=== PATIENT | female | born 1980 | race African-American/Black ===

== ENCOUNTER 2019-08-14 09:27 | Emergency (ER) | payer OTHER | END 2019-08-14 15:24 | disposition home or self-care (01) | LOC: EC 09:27 | DX: R22.0 Localized swelling, mass and lump, head (principal); R21 Rash and other nonspecific skin eruption | CPT/HCPCS: 99283 ==

== ENCOUNTER 2022-01-12 19:11 | Emergency (ER) | payer OTHER ==
[2022-01-12 19:30] VITALS: TEMP 98.4
[2022-01-12 23:18] LABS: Appearance,Urine Clear (Clear); Bacteria,Urine Rare /hpf; Bilirubin,Urine Negative (Negative); Blood,Urine Negative (Negative); Color,Urine Yellow; Glucose,Urine (UA) Negative (Negative); Ketones,Urine Negative (Negative); Leukocyte Esterase,Urine Moderate (Negative); Mucus,Urine Few /hpf; Nitrite,Urine Negative (Negative); PH, Urine 5.5 (5.0-8.0); Protein,Urine Trace (Negative); RBC,Urine 1 /hpf (0-5); Specific Gravity,Urine 1.025 (1.001-1.035); Squamous Epithelial Cell,Urine 1 /hpf (0-4); WBC,Urine 5 /hpf (0-5)
[2022-01-12] MEDS ORDERED: CEPHALEXIN 500 MG CAP PO STA (23:43)
[2022-01-12 23:50] VITALS: BP 137/67; PULSE 71; RESP 15
--- NOTE | 2022-01-12 23:57 | ED ---
Female Urogenital HPI - General Chief complaint: Urogenital Stated complaint: cough, urogenital Time Seen by Provider: 01/12/22 22:26 Source: patient Mode of arrival: ambulatory Limitations: no limitations - History of Present Illness Initial comments: 's patient is a 41-year-old woman who presents to have evaluation for 2 complaints. She states that the symptoms bothering her more currently are urinary frequency and dysuria. She states that she has urinary tract infection as the symptoms are similar. The patient notes that she also has had some upper respiratory symptoms including congestion and cough which now seems to be settling in her chest and she is having some thick sputum with cough. No real dyspnea. No chest pain. No leg pain or swelling. MD Complaint: dysuria Onset/Timin -: days(s) Location: suprapubic Severity: moderate Quality: burning Consistency: intermittent Worsens with: urination Last Menstrual Period: 01/09/22 - Related Data Previous Rx's Medication Instructions Recorded Cephalexin [Keflex] 500 mg PO Q6HR #28 cap 01/12/22 Albuterol Sulfate [Albuterol 2 puff PO Q4H PRN #8.5 gm 01/19/22 Sulfate Hfa] Ciprofloxacin HCl [Cipro] 500 mg PO Q12HR #14 tablet 01/19/22 Phenazopyridine [Pyridium] 200 mg PO TID #9 tablet 01/19/22 Allergies Allergy/AdvReac Type Severity Reaction Status Date / Time codeine AdvReac Rash/Hives Verified 01/12/22 19:30 lamotrigine [From Lamictal] AdvReac Rash/Hives Verified 01/12/22 19:30 Review of Systems ROS Statement: Those systems with pertinent positive or pertinent negative responses have been documented in the HPI. ROS Other: All systems not noted in ROS Statement are negative. Constitutional: Denies: fever, chills, weakness Respiratory: Reports: cough, wheezes. Denies: dyspnea Cardiovascular: Denies: chest pain, palpitations, edema Gastrointestinal: Denies: abdominal pain, nausea, vomiting Genitourinary: Reports: urgency, dysuria, frequency. Denies: discharge Musculoskeletal: Denies: back pain Skin: Denies: rash Neurological: Denies: headache, weakness Past Medical History Past Medical History: Asthma History of Any Multi-Drug Resistant Organisms: None Reported Past Surgical History: Section Past Psychological History: Anxiety Smoking Status: Never smoker Past Alcohol Use History: None Reported Past Drug Use History: None Reported General Exam Limitations: no limitations General appearance: alert, in no apparent distress Head exam: Present: atraumatic, normocephalic Eye exam: Present: normal appearance. Absent: scleral icterus, conjunctival injection Respiratory exam: Present: wheezes. Absent: respiratory distress, rales, rh onchi, stridor Cardiovascular Exam: Present: regular rate, normal rhythm, normal heart sounds. Absent: systolic murmur, diastolic murmur, rubs, gallop GI/Abdominal exam: Present: soft. Absent: distended, tenderness, guarding, rebound, rigid, mass Extremities exam: Present: normal inspection, normal capillary refill. Absent: pedal edema, calf tenderness Back exam: Absent: CVA tenderness (R), CVA tenderness (L) Neurological exam: Present: alert Skin exam: Present: warm, dry, intact, normal color. Absent: rash Course Vital Signs 01/12/22 01/12/22 19:24 23:48 Temperature 98.4 F Pulse Rate 93 71 Respiratory 20 15 Rate Blood Pressure 129/68 137/67 O2 Sat by Pulse 99 100 Oximetry Medical Decision Making - Lab Data Lab Results 01/12/22 01/12/22 01/12/22 Range/Units 22:38 22:38 22:47 Urine Color Yellow Urine Appearance Clear (Clear) Urine pH 5.5 (5.0-8.0) Ur Specific [place] 1.025 (1.001-1.035) Urine Protein Trace H (Negative) Urine Glucose (UA) Negative (Negative) Urine Ketones Negative (Negative) Urine Blood Negative (Negative) Urine Nitrite Negative (Negative) Urine Bilirubin Negative (Negative) Urine Urobilinogen 2.0 (<2.0) mg/dL Ur Leukocyte Esterase Moderate H (Negative) Urine RBC 1 (0-5) /hpf Urine WBC 5 (0-5) /hpf Ur Squamous Epith Cells 1 (0-4) /hpf Urine Bacteria Rare H (None) /hpf Urine Mucus Few H (None) /hpf Urine HCG, Qual (Not Detectd) Coronavirus (PCR) Not Detected (Not Detectd) Influenza Type A RNA Not Detected (Not Detectd) Influenza Type B (PCR) Not Detected (Not Detectd) 01/12/22 Range/Units 22:47 Urine Color Urine Appearance (Clear) Urine pH (5.0-8.0) Ur Specific [place] (1.001-1.035) Urine Protein (Negative) Urine Glucose (UA) (Negative) Urine Ketones (Negative) Urine Blood (Negative) Urine Nitrite (Negative) Urine Bilirubin (Negative) Urine Urobilinogen (<2.0) mg/dL Ur Leukocyte Esterase (Negative) Urine RBC (0-5) /hpf Urine WBC (0-5) /hpf Ur Squamous Epith Cells (0-4) /hpf Urine Bacteria (None) /hpf Urine Mucus (None) /hpf Urine HCG, Qual Not Detected (Not Detectd) Coronavirus (PCR) (Not Detectd) Influenza Type A RNA (Not Detectd) Influenza Type B (PCR) (Not Detectd) Disposition Clinical Impression: Urinary tract infection, Bronchitis Disposition: HOME SELF-CARE Condition: Stable Instructions (If sedation given, give patient instructions): Urinary Tract Infection in Women (ED), Acute Bronchitis (ED) Prescriptions: Cephalexin [Keflex] 500 mg PO Q6HR #28 cap Is patient prescribed a controlled substance at d/c from ED?: No Referrals: None,Stated [Primary Care Provider] - 1-2 days
== END 2022-01-13 | disposition home or self-care (01) ==
LOC: EC 19:11
DX: N39.0 Urinary tract infection, site not specified (principal); J45.909 Unspecified asthma, uncomplicated; F41.9 Anxiety disorder, unspecified; Z88.5 Allergy status to narcotic agent; Z88.8 Allergy status to other drugs, medicaments and biological substances; Z20.822 Contact with and (suspected) exposure to COVID-19
CPT/HCPCS: 81001; 81025; 87502; 87635; 99283

== ENCOUNTER 2022-01-19 18:06 | Emergency (ER) | payer MEDICARE, OTHER ==
[2022-01-19 18:54] VITALS: BP 126/89; PULSE 112; RESP 20; TEMP 98.5
--- NOTE | 2022-01-19 21:21 | ED ---
Female Urogenital HPI - General Chief complaint: Urogenital Stated complaint: possible UTI Time Seen by Provider: 01/19/22 21:06 Source: patient Mode of arrival: ambulatory Limitations: no limitations - Related Data Previous Rx's Medication Instructions Recorded Cephalexin [Keflex] 500 mg PO Q6HR #28 cap 01/12/22 Albuterol Sulfate [Albuterol 2 puff PO Q4H PRN #8.5 gm 01/19/22 Sulfate Hfa] Ciprofloxacin HCl [Cipro] 500 mg PO Q12HR #14 tablet 01/19/22 Phenazopyridine [Pyridium] 200 mg PO TID #9 tablet 01/19/22 Allergies Allergy/AdvReac Type Severity Reaction Status Date / Time codeine AdvReac Rash/Hives Verified 01/12/22 19:30 lamotrigine [From Lamictal] AdvReac Rash/Hives Verified 01/12/22 19:30 Review of Systems ROS Statement: Those systems with pertinent positive or pertinent negative responses have been documented in the HPI. ROS Other: All systems not noted in ROS Statement are negative. Past Medical History Past Medical History: Asthma History of Any Multi-Drug Resistant Organisms: None Reported Past Surgical History: Section Past Psychological History: Anxiety Smoking Status: Never smoker Past Alcohol Use History: None Reported Past Drug Use History: None Reported General Exam Limitations: no limitations Course Vital Signs 01/19/22 18:52 Temperature 98.5 F Pulse Rate 112 H Respiratory 20 Rate Blood Pressure 126/89 O2 Sat by Pulse 99 Oximetry Disposition Clinical Impression: UTI (urinary tract infection), Cough, Asthma Disposition: HOME SELF-CARE Condition: Good Instructions (If sedation given, give patient instructions): Urinary Tract Infection in Women (ED), Asthma (ED) Prescriptions: Albuterol Sulfate [Albuterol Sulfate Hfa] 2 puff PO Q4H PRN #8.5 gm PRN Reason: Cough Ciprofloxacin HCl [Cipro] 500 mg PO Q12HR #14 tablet Phenazopyridine [Pyridium] 200 mg PO TID #9 tablet Is patient prescribed a controlled substance at d/c from ED?: No Referrals: None,Stated [Primary Care Provider] - 1-2 days Time of Disposition: 21:20
--- NOTE | 2022-01-19 21:24 | ED ---
Female Urogenital HPI - General Chief complaint: Urogenital Stated complaint: possible UTI Time Seen by Provider: 01/19/22 21:06 Source: patient Mode of arrival: ambulatory Limitations: no limitations - History of Present Illness Initial comments: This 41-year-old female presents with complaint of some urinary urgency, frequency, and dysuria. She states that this is been going on for over a week. She has occasional suprapubic pain. There is no flank pain or fever. She was seen in the emergency department about a week ago and was prescribed Keflex and states that this does not help her symptomatology. She also is complaining of a cough and occasional shortness of breath over the past couple of weeks but this has significantly improved. She denies any recent production. She does have a history of asthma and is requesting an inhaler. She denies any other complaints or modifying factors. She denies any possibility of . - Related Data Previous Rx's Medication Instructions Recorded Cephalexin [Keflex] 500 mg PO Q6HR #28 cap 01/12/22 Albuterol Sulfate [Albuterol 2 puff PO Q4H PRN #8.5 gm 01/19/22 Sulfate Hfa] Ciprofloxacin HCl [Cipro] 500 mg PO Q12HR #14 tablet 01/19/22 Phenazopyridine [Pyridium] 200 mg PO TID #9 tablet 01/19/22 Allergies Allergy/AdvReac Type Severity Reaction Status Date / Time codeine AdvReac Rash/Hives Verified 01/12/22 19:30 lamotrigine [From Lamictal] AdvReac Rash/Hives Verified 01/12/22 19:30 Review of Systems ROS Statement: Those systems with pertinent positive or pertinent negative responses have been documented in the HPI. ROS Other: All systems not noted in ROS Statement are negative. Past Medical History Past Medical History: Asthma History of Any Multi-Drug Resistant Organisms: None Reported Past Surgical History: Section Past Psychological History: Anxiety Smoking Status: Never smoker Past Alcohol Use History: None Reported Past Drug Use History: None Reported General Exam - General Exam Comments Initial Comments: GENERAL: The patient is well nourished and well hydrated. VITAL SIGNS: Heart rate, blood pressure, respiratory rate reviewed as recorded in nurse's notes. EYES: Pupils are round and reactive. Extraocular movements are intact. No conjunctival / lid redness or swelling. ENT: No external evidence of injury, swelling, or ecchymosis. Airway is patent. Throat is clear. NECK: Nontender. No swelling or evidence of injury. No subcutaneous emphysema. Trachea is midline. No thyroid mass. HEART: Regular rate and rhythm. Good peripheral pulses. LUNGS/CHEST: Breath sounds clear and equal bilaterally. No rales, rhonchi, or wheezes. No ecchymosis, subcutaneous emphysema, or tenderness. ABDOMEN: Abdomen soft without tenderness. No palpable masses or organomegaly. No peritoneal signs. No abdominal wall swelling or ecchymosis. EXTREMITIES: No extremity tenderness. Normal muscle tone and function. No thoracolumbar tenderness. NEUROLOGIC: Sensation is grossly intact. Cranial nerve exam reveals face is symmetrical, tongue is midline, speech is clear. SKIN: No abrasions or ecchymosis is noted. No induration or masses noted. PSYCHIATRIC: Alert and oriented. Appropriate behavior and judgment. Limitations: no limitations Course Vital Signs 01/19/22 18:52 Temperature 98.5 F Pulse Rate 112 H Respiratory 20 Rate Blood Pressure 126/89 O2 Sat by Pulse 99 Oximetry Medical Decision Making - Medical Decision Making The patient was seen and examined. A review was done of records from past week. She was diagnosed with urinary tract infection as well as bronchitis and pres cribed Keflex for one week. It does not appear as though she is taken very many of her antibiotics as she has the pill bottle with her. She will be prescribed Cipro and Pyridium instead. It is felt as though her symptomatology is consistent with urinary tract infection. The patient also will be prescribed some albuterol for inhaler for her asthma. Close follow-up with primary care recommended. Return parameters are discussed. Disposition Clinical Impression: UTI (urinary tract infection), Cough, Asthma Disposition: HOME SELF-CARE Condition: Good Instructions (If sedation given, give patient instructions): Asthma (ED), Urinary Tract Infection in Women (ED) Prescriptions: Albuterol Sulfate [Albuterol Sulfate Hfa] 2 puff PO Q4H PRN #8.5 gm PRN Reason: Cough Ciprofloxacin HCl [Cipro] 500 mg PO Q12HR #14 tablet Phenazopyridine [Pyridium] 200 mg PO TID #9 tablet Is patient prescribed a controlled substance at d/c from ED?: No Referrals: None,Stated [Primary Care Provider] - 1-2 days Time of Disposition: 21:24
== END 2022-01-19 22:03 | disposition home or self-care (01) ==
LOC: EC 18:06
DX: N39.0 Urinary tract infection, site not specified (principal); J45.909 Unspecified asthma, uncomplicated; F41.9 Anxiety disorder, unspecified; Z79.899 Other long term (current) drug therapy; Z88.5 Allergy status to narcotic agent; Z88.8 Allergy status to other drugs, medicaments and biological substances
CPT/HCPCS: 99282; 99283

== ENCOUNTER 2022-01-28 18:12 | Emergency (ER) | payer MEDICARE ==
[2022-01-28 18:20] VITALS: TEMP 97.4
[2022-01-28] MEDS ORDERED: FLUCONAZOLE 150 MG TAB PO STA ×2 (18:55→19:52)
--- NOTE | 2022-01-28 19:28 | ED ---
Female Urogenital HPI - General Chief complaint: Urogenital Stated complaint: Female Time Seen by Provider: 01/28/22 18:20 Source: patient Mode of arrival: ambulatory Limitations: no limitations - History of Present Illness Initial comments: 41-year-old female presents the emergency department with continued urinary tract symptoms. She was seen on the a cough and dysuria. She was diagnosed with urinary tract infection and started on Keflex. She did obtain the prescription and took most of the medication. States that she continue to have symptoms and therefore was reevaluated on the . Her prescription was changed to Cipro. She has been unable to obtain the prescription as she does not have any money. She was also given a prescription for an albuterol inhaler as she is reporting a cough. States that she has vaginal and rectal itching. Denies concern for sexually transmitted infections as she has not been sexually active in one year. Reports a normal menstrual cycles. Denies any abnormal bleeding. Denies constant patient, diarrhea, black or bloody stools. No fevers. No nausea or vomiting. No other alleviating, precipitating or modifying factors - Related Data Home Medications Medication Instructions Recorded Confirmed Albuterol Sulfate [Albuterol 2 puff INHALATION RT-Q4H PRN 01/28/22 01/28/22 Sulfate Hfa] Allergies Allergy/AdvReac Type Severity Reaction Status Date / Time codeine AdvReac Rash/Hives Verified 01/28/22 19:14 lamotrigine [From Lamictal] AdvReac Rash/Hives Verified 01/28/22 19:14 Review of Systems ROS Statement: Those systems with pertinent positive or pertinent negative responses have been documented in the HPI. ROS Other: All systems not noted in ROS Statement are negative. Past Medical History Past Medical History: Asthma History of Any Multi-Drug Resistant Organisms: None Reported Past Surgical History: Section Past Psychological History: Anxiety Smoking Status: Never smoker Past Alcohol Use History: None Reported Past Drug Use History: None Reported General Exam Limitations: no limitations General appearance: alert, in no apparent distress GI/Abdominal exam: Present: soft, normal bowel sounds. Absent: distended, tenderness, guarding, rebound, rigid External exam: Present: other (thick white, clumpy discharge. ). Absent: erythema, swelling, lesions, lacerations Extremities exam: Present: normal inspection, full ROM, normal capillary refill. Absent: tenderness, pedal edema, joint swelling, calf tenderness Back exam: Present: normal inspection Neurological exam: Present: alert, oriented X3, CN II-XII intact Psychiatric exam: Present: normal affect, normal mood Skin exam: Present: warm, dry, intact, normal color. Absent: rash Course Vital Signs 01/28/22 01/28/22 18:18 20:03 Temperature 97.4 F L Pulse Rate 108 H 100 Respiratory 22 20 Rate Blood Pressure 131/82 O2 Sat by Pulse 97 97 Oximetry Medical Decision Making - Medical Decision Making Upon arrival patient was placed in room 22. A thorough history and physical exam was performed. Genital exam was performed which demonstrates the clumpy white discharge consistent with yeast. Patient does provide a urine sample which does not demonstrate any significant signs of infection. I do not feel the patient needs to fill the Cipro or Pyridium. Patient's symptoms are likely due to vaginal candidiasis. She was given 1 dose of oral Diflucan in the emergency department. She will be given a second dose to take home in 72 hours should she have persistent symptoms. She may fill the albuterol for her cough that she was previously prescribed. Follow up with primary care doctor in 2-4 days and return for any new or worsening symptoms. Patient agreeable and discharged home in stable condition - Lab Data Lab Results 01/28/22 Range/Units 19:04 Urine Color Yellow Urine Appearance Cloudy H (Clear) Urine pH 5.5 (5.0-8.0) Ur Specific [place] 1.030 (1.001-1.035) Urine Protein 1+ H (Negative) Urine Glucose (UA) Negative (Negative) Urine Ketones 2+ H (Negative) Urine Blood Negative (Negative) Urine Nitrite Negative (Negative) Urine Bilirubin Negative (Negative) Urine Urobilinogen 3.0 (<2.0) mg/dL Ur Leukocyte Esterase Small H (Negative) Urine RBC 2 (0-5) /hpf Urine WBC 3 (0-5) /hpf Ur Squamous Epith Cells 15 H (0-4) /hpf Urine Mucus Many H (None) /hpf Disposition Clinical Impression: Vaginal candidiasis Disposition: HOME SELF-CARE Condition: Stable Instructions (If sedation given, give patient instructions): Yeast Infection (ED) Additional Instructions: Do not take the antibiotics or pyridium. Take the second dose of Diflucan in 72 hours if you have continued symptoms. Return for any new or worsening symptoms Is patient prescribed a controlled substance at d/c from ED?: No Referrals: None,Stated [Primary Care Provider] - 1-2 days Time of Disposition: 19:58
[2022-01-28 19:30] LABS: Appearance,Urine Cloudy (Clear); Bilirubin,Urine Negative (Negative); Blood,Urine Negative (Negative); Color,Urine Yellow; Glucose,Urine (UA) Negative (Negative); Ketones,Urine 2+ (Negative); Leukocyte Esterase,Urine Small (Negative); Mucus,Urine Many /hpf; Nitrite,Urine Negative (Negative); PH, Urine 5.5 (5.0-8.0); Protein,Urine 1+ (Negative); RBC,Urine 2 /hpf (0-5); Squamous Epithelial Cell,Urine 15 /hpf (0-4); WBC,Urine 3 /hpf (0-5)
[2022-01-28 20:04] VITALS: BP 131/82; PULSE 100; RESP 20
== END 2022-01-28 20:03 | disposition home or self-care (01) ==
LOC: EC 18:12
DX: B37.31 Acute candidiasis of vulva and vagina (principal); J45.909 Unspecified asthma, uncomplicated; F41.9 Anxiety disorder, unspecified; Z88.5 Allergy status to narcotic agent; Z88.8 Allergy status to other drugs, medicaments and biological substances; Z79.899 Other long term (current) drug therapy
CPT/HCPCS: 81001; 99283